=== PATIENT | female | born 1950 ===

== ENCOUNTER 2017-04-22 22:20 | Inpatient (IN) | payer MEDICARE, OTHER ==
[~2017-04-22] VITALS: Ht 149.9 cm; Wt 77.1 kg
--- NOTE | 2017-04-22 21:00 | NUR ---
Pt arrived in rehab unit at 2030 via gurney, transferred by [facility] from [facility]. AAO x3 but forgetful. Slow speech, but respond appropriately. Skin intact. No acute distress noted. No c/o pain or discomfort. Pertinent assessment done. Oriented pt to unit and equipment. Safety measures maintained. Call light and personal belongings within reach. Will continue to monitor.
[2017-04-22] MEDS ORDERED: Z GUARD REMEDY PASTE 57 GM TUBE TOP PRN (23:00)
[2017-04-22 23:29] VITALS: BP 144/99
--- NOTE | 2017-04-22 23:50 | NUR ---
Called [facility] for med recon. Per rivet tapping machine operator, Dr. Huerta said to call back for med recon at 0900 tomorrow. Will continue to monitor pt.
--- NOTE | 2017-04-23 06:01 | NUR ---
Pt slept comfortably at night. VSS. All needs attended to promptly. Assisted to the bathroom and changed diaper as needed. Pt has been compliant. Will endorse to day shift RN. Continue to monitor.
[2017-04-23 08:34] VITALS: BP 104/68
--- NOTE | 2017-04-23 09:02 | NUR ---
SBAR report received, board updated. Pt assessed, awake, alert, and oriented. Pt compliant with scheduled therapies for initial evaluations. [facility] doctor customer relationship specialist called, and left message regarding admission medication reconciliation. Pt only has Z guard listed at this time. Plan of care discussed. Will continue to monitor.
--- NOTE | 2017-04-23 11:08 | NUR ---
Called again attempting to reach Dr. Huerta as endorsed from shift mgr nurse regarding medication reconciliation from admission yesterday. Left message with receptionist nurse. Pt compliant with PT and OT as scheduled. Spoke with Pt's emergency contact Ofelia Mccullough regarding visiting and plan of care. Called for a third time and left message with receptionist nurse for studio operations engineer in charge VIP MD. Will continue to monitor Pt.
--- NOTE | 2017-04-23 11:30 | NUR ---
Spoke with VIP MD, Dr. Arguello over the phone regarding initial medication reconciliation, stating he would "take care of it" and complete med recon. All comfort measures met. Call light within reach. Will continue to monitor Pt.
--- NOTE | 2017-04-23 11:45 | NUR ---
Pt blood sugar 190. Pt reports feeling "fine and normal", denies dizziness. Call light within reach. Will continue to monitor.
[2017-04-23] MEDS ORDERED: GABA300C PO (12:20)
[2017-04-23] MEDS ORDERED: DONE5TAB7 PO (12:20)
[2017-04-23] MEDS ORDERED: ATOR40TA PO (12:20)
[2017-04-23] MEDS ORDERED: CLOP75TA15 PO (12:20)
[2017-04-23] MEDS ORDERED: AMLO5TAB4 PO (12:20)
[2017-04-23] MEDS ORDERED: CLON0.1T14 PO (12:20)
[2017-04-23] MEDS ORDERED: METF850T PO (12:20)
[2017-04-23] MEDS ORDERED: VALS320T2 PO (12:20)
[2017-04-23] MEDS ORDERED: HYDR25TA4 PO (12:20)
[2017-04-23] MEDS ORDERED: ASPI81TA31 PO (12:21)
--- NOTE | 2017-04-23 13:13 | NUR ---
Attempted to contact [facility] MDs, leaving message for retail center receptionist again. Medication reconciliation still unapproved by MD. Pharmacy contacted as well as Dr. See and Dr. Shaun De Los Santos regarding the matter. Will continue to monitor Pt. Call light within reach.
[2017-04-23] MEDS ORDERED: CLONIDINE HCL 0.1 MG TABLET PO PRN (13:45)
--- NOTE | 2017-04-23 14:00 | NUR ---
Pt seen by , Dr. Arguello, new orders received. Medication reconciliation done. Pt compliant with medication administration as ordered. Call light within reach. Will continue to monitor.
[2017-04-23] MEDS: ASPIRIN 81 MG TAB.CHEW PO SCH (14:07)
[2017-04-23] MEDS: ATORVASTATIN 40 MG TABLET PO SCH (14:07)
[2017-04-23] MEDS: AMLODIPINE 5 MG TABLET PO SCH ×2 (14:08→21:11)
[2017-04-23] MEDS: LOSARTAN POTASSIUM 50 MG TABLET PO SCH (14:09)
[2017-04-23] MEDS ORDERED: BLOOD SUGAR DIAGNOSTIC 1 EACH STRIP VI SCH (16:30)
[2017-04-23] MEDS: GABAPENTIN 300 MG CAPSULE PO SCH (17:05)
[2017-04-23] MEDS: METFORMIN HCL 850 MG TABLET PO SCH (17:05)
[2017-04-23] MEDS ORDERED: INSULIN REGULAR, HUMAN 300 UNIT/3 ML VIAL SQ SCH (17:45)
[2017-04-23] MEDS ORDERED: DEXTROSE 50% 50 ML DISP.SYRIN IV PRN (18:00)
--- NOTE | 2017-04-23 20:13 | NUR ---
Received pt asleep, lying on bed comfortably with no signs of distress noted. No complaints of pain or discomfort. No SOB noted. Vital signs stable. Kept clean, dry and comfortable. call light within reach. Side rails up. Bed alarm on. Bed locked and in lowest position. All needs attended.
[2017-04-23 20:28] VITALS: BP 136/79
[2017-04-23] MEDS: DONEPEZIL 5 MG TABLET PO SCH (21:11)
[2017-04-23] MEDS: BLOOD SUGAR DIAGNOSTIC 1 EACH STRIP VI SCH (21:15)
[2017-04-23] MEDS: [UNRECOGNIZED DRUG - REMARK] SQ PRN (21:16)
--- NOTE | 2017-04-24 06:14 | NUR ---
Pt slept comfortably throughout the night. No apparent distress noted. No complaints of pain or discomfort. Breathing even and unlabored with normal respirations. Assisted to the bathroom as needed. Kept clean, dry and comfortable. Call light within reach. All needs met.
[2017-04-24] MEDS: BLOOD SUGAR DIAGNOSTIC 1 EACH STRIP VI SCH ×4 (06:33→21:03)
[2017-04-24 07:36] LABS: BASOPHILS % (AUTO) 0.9 % (0.0-2.0); EOSINOPHILS # (AUTO) 0.2 K/uL (0.0-0.7); EOSINOPHILS % (AUTO) 4.4 % (0.0-7.0); HEMATOCRIT 38.5 % (31.2-41.9); HEMOGLOBIN 12.8 g/dL (10.9-14.3); LYMPHOCYTES # (AUTO) 1.5 K/uL (20.0-40.0); LYMPHOCYTES % (AUTO) 29.8 % (20.5-51.5); MEAN CORPUSCULAR HEMOGLOBIN 29.9 uug (24.7-32.8); MEAN CORPUSCULAR HGB CONC 33 g/dL (32.3-35.6); MEAN CORPUSCULAR VOLUME 89.7 fL (75.5-95.3); MONOCYTES # (AUTO) 0.5 K/uL (2.0-10.0); MONOCYTES % (AUTO) 10.6 % (0.0-11.0); NEUTROPHILS # (AUTO) 2.8 K/uL (1.8-8.9); NEUTROPHILS % (AUTO) 54.3 % (38.5-71.5); PLATELET COUNT (AUTO) 195 K/uL (179-408); WHITE BLOOD COUNT (AUTO) 5.1 K/uL (3.8-11.8)
[2017-04-24 08:04] LABS: BILIRUBIN,TOTAL 0.4 mg/dL (0.2-1.0); MAGNESIUM 1.4 mg/dL (1.8-2.4); PHOSPHOROUS 2.8 mg/dL (2.5-4.9); POTASSIUM 3.5 mmol/L (3.5-5.1); TOTAL PROTEIN, SERUM 7.5 g/dL (6.4-8.2)
[2017-04-24] MEDS: GABAPENTIN 300 MG CAPSULE PO SCH ×2 (08:28→16:55)
[2017-04-24] MEDS: ATORVASTATIN 40 MG TABLET PO SCH (08:28)
[2017-04-24] MEDS: CLOPIDOGREL 75 MG TABLET PO SCH (08:28)
[2017-04-24] MEDS: METFORMIN HCL 850 MG TABLET PO SCH ×2 (08:28→16:55)
[2017-04-24] MEDS: LOSARTAN POTASSIUM 50 MG TABLET PO SCH (08:28)
[2017-04-24] MEDS: ASPIRIN 81 MG TAB.CHEW PO SCH (08:28)
[2017-04-24] MEDS: [UNRECOGNIZED DRUG - REMARK] SQ PRN ×3 (08:29→16:54)
[2017-04-24] MEDS: HYDROCHLOROTHIAZIDE 25 MG TABLET PO SCH (08:29)
[2017-04-24 10:01] VITALS: BP 139/98
--- NOTE | 2017-04-24 11:02 | NUR ---
pt seen on rounding. pt continues to be baseline. nih scale done. stroke education given . pt needs reinforcement. pt is fall risk. bed alarm on and bed in low position. vitals stable. loc remained baseline. pt participated in therapy. PT states taht pt has problems with balance and coordination. pt blood sugar wnl no insulin given. pt ate all breakfast. will continue to monitor.
[2017-04-24] MEDS ORDERED: MAGNESIUM OXIDE 400 MG TABLET PO ONE (14:45)
[2017-04-24] MEDS ORDERED: BISACODYL 5 MG TABLET.DR PO ONE (16:15)
[2017-04-24] MEDS ORDERED: BISACODYL 5 MG TABLET.DR PO PRN (17:00)
--- NOTE | 2017-04-24 18:47 | NUR ---
pt stable throughout the day. no changes on nih scale. pt had a bm and voided. pt given insulin as needed. will endorse to night fit nurse.
--- NOTE | 2017-04-24 19:15 | NUR ---
Received patient laying in bed. Alert and verbally responsive. Able to make needs known. Denies any pain and discomfort at this time. No acute distress. No SOB. Kept clean and dry. All needs attended to promptly. Call light is within reach. Will continue to monitor.
[2017-04-24 19:30] VITALS: BP 124/95
[2017-04-24] MEDS: AMLODIPINE 5 MG TABLET PO SCH (21:02)
[2017-04-24] MEDS: DONEPEZIL 5 MG TABLET PO SCH (21:02)
[2017-04-25] MEDS: BLOOD SUGAR DIAGNOSTIC 1 EACH STRIP VI SCH ×4 (06:31→20:47)
--- NOTE | 2017-04-25 06:43 | NUR ---
Patient slept comfortably throughout the night. No cd/o pain and discomfort. No acute distress. No SOB. Kept clean and dry. BS this am is 108. No insulin coverage needed. All needs attended to promptly. Call light is within reach. Will continue to monitor.
[2017-04-25 07:30] VITALS: BP 126/86
[2017-04-25] MEDS: METFORMIN HCL 850 MG TABLET PO SCH ×2 (08:36→17:19)
[2017-04-25] MEDS: GABAPENTIN 300 MG CAPSULE PO SCH ×2 (08:37→17:19)
[2017-04-25] MEDS: ATORVASTATIN 40 MG TABLET PO SCH (08:37)
[2017-04-25] MEDS: CLOPIDOGREL 75 MG TABLET PO SCH (08:37)
[2017-04-25] MEDS: ASPIRIN 81 MG TAB.CHEW PO SCH (08:37)
[2017-04-25] MEDS: LOSARTAN POTASSIUM 50 MG TABLET PO SCH (08:38)
[2017-04-25] MEDS: HYDROCHLOROTHIAZIDE 25 MG TABLET PO SCH (08:38)
[2017-04-25] MEDS: [UNRECOGNIZED DRUG - REMARK] SQ PRN (12:04)
--- NOTE | 2017-04-25 18:16 | NUR ---
Patient was compliant with her plan of care all throughout the shift. She denies pain, set goals for therapy, PT/OT and was achieved per patient. Patients had no episode of hypoglycemia or hyperglycemia at this time, safety was provided and all her needs were attended promptly. Call light is in reach. Pertinent assessments done, not in acute distress.
--- NOTE | 2017-04-25 19:15 | NUR ---
Received patient laying in bed. Alert and verbally responsive. Able to make needs known. Denies any pain and discomfort at this time. No acute distress. No SOB. Kept clean and dry. All needs attended to promptly. Call light within reach. Will continue to monitor.
[2017-04-25 20:08] VITALS: BP 126/74
[2017-04-25] MEDS: DONEPEZIL 5 MG TABLET PO SCH (20:42)
[2017-04-25] MEDS: AMLODIPINE 5 MG TABLET PO SCH (20:42)
[2017-04-26] MEDS: BLOOD SUGAR DIAGNOSTIC 1 EACH STRIP VI SCH ×4 (06:38→20:34)
--- NOTE | 2017-04-26 06:51 | NUR ---
Patient slept comfortably throughout the night. No c/o pain and discomfort. No acute distress. No SOB. Kept clean and dry. All needs attended to promptly. Call light within reach. Will continue to monitor.
[2017-04-26 07:30] VITALS: BP 117/86
[2017-04-26] MEDS: ATORVASTATIN 40 MG TABLET PO SCH (08:34)
[2017-04-26] MEDS: METFORMIN HCL 850 MG TABLET PO SCH ×2 (08:34→17:00)
[2017-04-26] MEDS: GABAPENTIN 300 MG CAPSULE PO SCH ×2 (08:34→16:59)
[2017-04-26] MEDS: ASPIRIN 81 MG TAB.CHEW PO SCH (08:35)
[2017-04-26] MEDS: LOSARTAN POTASSIUM 50 MG TABLET PO SCH (08:35)
[2017-04-26] MEDS: CLOPIDOGREL 75 MG TABLET PO SCH (08:35)
[2017-04-26] MEDS: HYDROCHLOROTHIAZIDE 25 MG TABLET PO SCH (08:36)
--- NOTE | 2017-04-26 11:16 | NUR ---
SBAR report received, board updated. Pt assessed, awake, alert, and oriented x3-4. Pt easily able to make needs known, with extra time to respond. Pt compliant with all routinely scheduled medication administration. Plan of care for the day discussed and willingness to participate in therapies provided. All comfort and safety needs met. Will continue to monitor.
--- NOTE | 2017-04-26 13:58 | NUR ---
INTERDISCIPLINARY TEAM CONFERENCE
--- NOTE | 2017-04-26 18:30 | NUR ---
Pt assisted to bathroom, reminded to utilize call light for all toileting needs. Voiding x1 and BM x1. Pt clean, dry, and repositioned for comfort. Call light and personal belongings placed within reach. All safety and comfort measures met, will continue to monitor and endorse to oncoming shift supervisor rn.
--- NOTE | 2017-04-26 19:45 | NUR ---
Received pt lying on bed comfortably, awake and alert. No acute distress noted. Denies pain at this time. No SOB noted. Kept clean, dry and comfortable. Side rails up. Bed alarm on. Bed locked and in lowest position. Call light placed within reach. Encouraged to call for assistance if needed. All needs attended.
[2017-04-26 20:16] VITALS: BP 119/85
[2017-04-26] MEDS: DONEPEZIL 5 MG TABLET PO SCH (20:30)
[2017-04-26] MEDS: AMLODIPINE 5 MG TABLET PO SCH (20:30)
[2017-04-26] MEDS: [UNRECOGNIZED DRUG - REMARK] SQ PRN (20:37)
--- NOTE | 2017-04-27 05:40 | NUR ---
Pt slept well throughout the shift with no signs of distress noted. No complaints of pain or discomfort. Breathing even and unlabored with normal respirations. Assisted to the bathroom as needed. Frequently checked for safety. Call light placed within reach. All needs attended.
[2017-04-27] MEDS: BLOOD SUGAR DIAGNOSTIC 1 EACH STRIP VI SCH ×4 (06:27→20:36)
[2017-04-27 08:03] VITALS: BP 127/98
[2017-04-27] MEDS: GABAPENTIN 300 MG CAPSULE PO SCH ×2 (09:51→18:08)
[2017-04-27] MEDS: ATORVASTATIN 40 MG TABLET PO SCH (09:51)
[2017-04-27] MEDS: LOSARTAN POTASSIUM 50 MG TABLET PO SCH (09:51)
[2017-04-27] MEDS: CLOPIDOGREL 75 MG TABLET PO SCH (09:51)
[2017-04-27] MEDS: METFORMIN HCL 850 MG TABLET PO SCH ×2 (09:51→18:08)
[2017-04-27] MEDS: HYDROCHLOROTHIAZIDE 25 MG TABLET PO SCH (09:52)
[2017-04-27] MEDS: ASPIRIN 81 MG TAB.CHEW PO SCH (09:54)
[2017-04-27 19:30] VITALS: BP 151/83
--- NOTE | 2017-04-27 19:36 | NUR ---
Received pt on bed alert and awake with no apparent distress noted. No complaints of pain or discomfort. No signs/symptoms of hypo/hyperglycemia noted. kept clean, dry and comfortable. Bed alarm on. Bed locked and in lowest position. Call light placed within reach. All needs attended.
[2017-04-27] MEDS: DONEPEZIL 5 MG TABLET PO SCH (20:32)
[2017-04-27] MEDS: [UNRECOGNIZED DRUG - REMARK] SQ PRN (20:38)
[2017-04-27] MEDS: AMLODIPINE 5 MG TABLET PO SCH (20:39)
[2017-04-28] MEDS: BLOOD SUGAR DIAGNOSTIC 1 EACH STRIP VI SCH ×4 (06:20→20:43)
--- NOTE | 2017-04-28 06:32 | NUR ---
Pt slept comfortably throughout the night with no apparent distress noted. No complaints of pain or discomfort. Breathing even and unlabored with normal respirations. Assisted to the bathroom as needed. Safety and fall precautions observed and maintained. Call light placed within reach. All needs attended.
[2017-04-28 08:00] VITALS: BP 113/75
[2017-04-28] MEDS: METFORMIN HCL 850 MG TABLET PO SCH ×2 (09:05→17:34)
[2017-04-28] MEDS: ATORVASTATIN 40 MG TABLET PO SCH (09:05)
[2017-04-28] MEDS: CLOPIDOGREL 75 MG TABLET PO SCH (09:05)
[2017-04-28] MEDS: ASPIRIN 81 MG TAB.CHEW PO SCH (09:06)
[2017-04-28] MEDS: LOSARTAN POTASSIUM 50 MG TABLET PO SCH (09:06)
[2017-04-28] MEDS: GABAPENTIN 300 MG CAPSULE PO SCH ×2 (09:07→17:34)
[2017-04-28] MEDS: HYDROCHLOROTHIAZIDE 25 MG TABLET PO SCH (09:07)
--- NOTE | 2017-04-28 20:10 | NUR ---
Received pt up in bed, AAO x 2, verbally responsive and able to make needs known. No acute distress noted. Denies pain or discomfort at this time. All safety measures and fall precautions maintained. Call light and all personal belongings within reach. Will continue to monitor.
[2017-04-28] MEDS: DONEPEZIL 5 MG TABLET PO SCH (20:42)
[2017-04-28] MEDS: AMLODIPINE 5 MG TABLET PO SCH (20:43)
[2017-04-29] MEDS: BLOOD SUGAR DIAGNOSTIC 1 EACH STRIP VI SCH ×4 (06:53→20:57)
[2017-04-29] MEDS: ATORVASTATIN 40 MG TABLET PO SCH (08:22)
[2017-04-29] MEDS: ASPIRIN 81 MG TAB.CHEW PO SCH (08:22)
[2017-04-29] MEDS: CLOPIDOGREL 75 MG TABLET PO SCH (08:22)
[2017-04-29] MEDS: GABAPENTIN 300 MG CAPSULE PO SCH ×2 (08:22→16:39)
[2017-04-29] MEDS: METFORMIN HCL 850 MG TABLET PO SCH ×2 (08:22→17:00)
[2017-04-29] MEDS: LOSARTAN POTASSIUM 50 MG TABLET PO SCH (08:23)
[2017-04-29] MEDS: HYDROCHLOROTHIAZIDE 25 MG TABLET PO SCH (08:24)
--- NOTE | 2017-04-29 11:09 | NUR ---
SBAR report received, board updated. Pt assessed, awake, alert, oriented x2. VS WNL. No acute distress or c/o pain. Pt consumed 100% of breakfast, feeding self independently. Pt compliant with routine morning medication administration. BS 94, no coverage necessary. Plan for today discussed. Pt able to make needs known. Bed in lowest position, locked, with side rails up x2. Call light and personal belongings placed within reach. Will continue to monitor.
[2017-04-29] MEDS: [UNRECOGNIZED DRUG - REMARK] SQ PRN (12:21)
--- NOTE | 2017-04-29 17:53 | NUR ---
Pt assisted to bathroom, voiding x1. Pt clean, dry, and assisted back into bed. Pt compliant with routine scheduled medications, BS 107 requiring no insulin coverage. Pt consumed 100% of dinner. All safety and comfort measures met. Call light within reach. Will continue to monitor and endorse oncoming shift mgr.
--- NOTE | 2017-04-29 19:26 | NUR ---
Received pt in bed, watching television AAO x 3 with no acute distress noted. Verbally responsive and able to make needs known. Verbalizing feeling "tired, but I'm getting stronger." Denies pain or discomfort at this time. All safety measures and fall precautions maintained. Call light and all personal belongings within reach. Will continue to monitor.
[2017-04-29] MEDS: AMLODIPINE 5 MG TABLET PO SCH (20:56)
[2017-04-29] MEDS: DONEPEZIL 5 MG TABLET PO SCH (20:56)
[2017-04-29 21:17] VITALS: BP 126/92
[2017-04-30] MEDS: BLOOD SUGAR DIAGNOSTIC 1 EACH STRIP VI SCH ×4 (06:42→21:19)
[2017-04-30] MEDS: CLOPIDOGREL 75 MG TABLET PO SCH (08:10)
[2017-04-30] MEDS: HYDROCHLOROTHIAZIDE 25 MG TABLET PO SCH (08:10)
[2017-04-30] MEDS: GABAPENTIN 300 MG CAPSULE PO SCH ×2 (08:10→17:01)
[2017-04-30] MEDS: METFORMIN HCL 850 MG TABLET PO SCH ×2 (08:10→17:01)
[2017-04-30] MEDS: LOSARTAN POTASSIUM 50 MG TABLET PO SCH (08:11)
[2017-04-30] MEDS: ASPIRIN 81 MG TAB.CHEW PO SCH (08:11)
[2017-04-30] MEDS: ATORVASTATIN 40 MG TABLET PO SCH (08:11)
--- NOTE | 2017-04-30 09:31 | NUR ---
SBAR report received, board updated. Pt assessed, denies pain or discomfort at this time. VS WNL. Pt reports having slept well. Plan of care for the day discussed. Pt agrees to comply with all regularly scheduled therapies. Pt compliant with all morning medications. BS 98 requiring no insulin coverage. Pt assisted to sit up for self feeding and consumed 100% of breakfast. Call light within reach will continue to monitor.
[2017-04-30] MEDS: [UNRECOGNIZED DRUG - REMARK] SQ PRN (12:07)
--- NOTE | 2017-04-30 18:29 | NUR ---
Pt assisted to bathroom, BMx1 and voiding x1. Pt clean and dry. Bed alarm on. VS WNL. All needs attended to at this time. Call light within reach and Pt teaching used to remind Pt to use when in need of assistance. Will continue to monitor and endorse to oncoming material handler 2nd shift.
[2017-04-30 20:00] VITALS: BP 127/88
--- NOTE | 2017-04-30 20:00 | NUR ---
Received pt on bed awake, alert and oriented. Able to make needs known. No acute distress noted. No complaints of pain or discomfort. No SOB noted. All due meds given as ordered and well tolerated. Vital signs stable. Kept clean, dry and comfortable. Call light placed within reach. Side rails up x2. Bed alarm on. Bed locked and in lowest position. All needs attended.
--- NOTE | 2017-04-30 21:00 | NUR ---
Patient took off the splint on her right 4th and 5th finger, states that it is very uncomfortable for her. Explained risks and benefits but still pt refused to put it back on. No complaints of pain. No SOB noted. Will continue to monitor.
[2017-04-30] MEDS: DONEPEZIL 5 MG TABLET PO SCH (21:13)
[2017-04-30] MEDS: AMLODIPINE 5 MG TABLET PO SCH (21:14)
[2017-05-01] MEDS: BLOOD SUGAR DIAGNOSTIC 1 EACH STRIP VI SCH ×4 (06:41→20:15)
[2017-05-01 08:13] VITALS: BP 124/92
[2017-05-01] MEDS: METFORMIN HCL 850 MG TABLET PO SCH ×2 (08:47→17:00)
[2017-05-01] MEDS: ATORVASTATIN 40 MG TABLET PO SCH (08:47)
[2017-05-01] MEDS: LOSARTAN POTASSIUM 50 MG TABLET PO SCH (08:47)
[2017-05-01] MEDS: CLOPIDOGREL 75 MG TABLET PO SCH (08:47)
[2017-05-01] MEDS: GABAPENTIN 300 MG CAPSULE PO SCH ×2 (08:47→17:00)
[2017-05-01] MEDS: HYDROCHLOROTHIAZIDE 25 MG TABLET PO SCH (08:48)
[2017-05-01] MEDS: ASPIRIN 81 MG TAB.CHEW PO SCH (08:48)
[2017-05-01] MEDS: [UNRECOGNIZED DRUG - REMARK] SQ PRN ×4 (08:48→20:18)
--- NOTE | 2017-05-01 09:04 | NUR ---
pt seen on rounding. vitals stable. no new injuries. pt participated in adl such as eating. deficits from stroke seen but improving on gross movements on hands. pt took meds whole no aspiration noted. pt took off splint on fingers stating that it was uncomfortable but willing to put it on later. no insulin given am. will continue to monitor.
[2017-05-01 09:31] LABS: BASOPHILS % (AUTO) 0.6 % (0.0-2.0); EOSINOPHILS # (AUTO) 0.2 K/uL (0.0-0.7); EOSINOPHILS % (AUTO) 3.7 % (0.0-7.0); LYMPHOCYTES # (AUTO) 1.5 K/uL (20.0-40.0); LYMPHOCYTES % (AUTO) 26.1 % (20.5-51.5); MEAN CORPUSCULAR HEMOGLOBIN 29.9 uug (24.7-32.8); MEAN CORPUSCULAR HGB CONC 33 g/dL (32.3-35.6); MEAN CORPUSCULAR VOLUME 89.5 fL (75.5-95.3); MONOCYTES # (AUTO) 0.3 K/uL (2.0-10.0); MONOCYTES % (AUTO) 4.7 % (0.0-11.0); NEUTROPHILS # (AUTO) 3.6 K/uL (1.8-8.9); NEUTROPHILS % (AUTO) 64.9 % (38.5-71.5); PLATELET COUNT (AUTO) 229 K/uL (179-408); RED BLOOD CELL COUNT(AUTO) 4.69 MIL/uL (3.63-4.92); WHITE BLOOD COUNT (AUTO) 5.6 K/uL (3.8-11.8)
[2017-05-01 10:22] LABS: THYROID STIMULATING HORMONE 1.712 mIU/mL (0.358-3.740)
[2017-05-01 10:32] LABS: BILIRUBIN,TOTAL 0.4 mg/dL (0.2-1.0); CREATININE 1.1 mg/dL (0.6-1.3); MAGNESIUM 1.4 mg/dL (1.8-2.4); PHOSPHOROUS 2.9 mg/dL (2.5-4.9); POTASSIUM 3.5 mmol/L (3.5-5.1); TOTAL PROTEIN, SERUM 8.1 g/dL (6.4-8.2)
--- NOTE | 2017-05-01 19:00 | NUR ---
Received patient laying in bed. Alert and verbally responsive. Able to make needs known. Denies any pain and discomfort at this time. No acute distress. No SOB. Kept clean and dry. Bed alarm on. Bed in low position. All needs attended to promptly. Call light within reach. Will continue to monitor.
--- NOTE | 2017-05-01 19:02 | NUR ---
pt stable throughout the day. pt participated on therapy. no new injuries. [facility] remained baseline will endorse to welder 2nd shift nurse.
[2017-05-01 20:00] VITALS: BP 132/90
[2017-05-01] MEDS: DONEPEZIL 5 MG TABLET PO SCH (20:15)
[2017-05-01] MEDS: AMLODIPINE 5 MG TABLET PO SCH (20:16)
[2017-05-02] MEDS: BLOOD SUGAR DIAGNOSTIC 1 EACH STRIP VI SCH ×4 (06:42→20:48)
--- NOTE | 2017-05-02 07:00 | NUR ---
Patient slept comfortably throughout the night. No c/o pain and discomfort. No acute distress. No SOB. Diaper changed. Kept clean and dry. Blood sugar this AM is 98. No insulin needed. Bed alarm on. Bed in low position. All needs attended to promptly. Call light within reach. Will continue to monitor.
[2017-05-02 08:00] VITALS: BP 119/89
--- NOTE | 2017-05-02 08:25 | NUR ---
patient noted resting in bed watching tv, no complaints of pain at this time, call light in reach, bed locked and in lowest position, x 2 bed rails, all needs met at this time.
[2017-05-02] MEDS: METFORMIN HCL 850 MG TABLET PO SCH ×2 (08:34→17:13)
[2017-05-02] MEDS: GABAPENTIN 300 MG CAPSULE PO SCH ×2 (08:34→17:13)
[2017-05-02] MEDS: ATORVASTATIN 40 MG TABLET PO SCH (08:34)
[2017-05-02] MEDS: ASPIRIN 81 MG TAB.CHEW PO SCH (08:34)
[2017-05-02] MEDS: CLOPIDOGREL 75 MG TABLET PO SCH (08:34)
[2017-05-02] MEDS: HYDROCHLOROTHIAZIDE 25 MG TABLET PO SCH (08:35)
[2017-05-02] MEDS: LOSARTAN POTASSIUM 50 MG TABLET PO SCH (08:35)
--- NOTE | 2017-05-02 20:04 | NUR ---
admitted for CVA with left side weakness. Resting in b`ed upon rounds. aaox3-4 no acute distress noted. needs attended. continent of bowel and bladder. fall precautions maintained. siderails up for safety. left hand swollen +2 pitting edema noted. will monitor patient. kept comfortable. vital signs stable.
[2017-05-02 20:16] VITALS: BP 115/88
[2017-05-02] MEDS: AMLODIPINE 5 MG TABLET PO SCH (20:49)
[2017-05-02] MEDS: DONEPEZIL 5 MG TABLET PO SCH (20:49)
[2017-05-03] MEDS: BLOOD SUGAR DIAGNOSTIC 1 EACH STRIP VI SCH ×4 (06:30→21:04)
[2017-05-03 08:14] VITALS: BP 128/93
[2017-05-03] MEDS: METFORMIN HCL 850 MG TABLET PO SCH ×2 (08:20→16:48)
[2017-05-03] MEDS: ATORVASTATIN 40 MG TABLET PO SCH (08:20)
[2017-05-03] MEDS: CLOPIDOGREL 75 MG TABLET PO SCH (08:20)
[2017-05-03] MEDS: GABAPENTIN 300 MG CAPSULE PO SCH ×2 (08:20→16:48)
[2017-05-03] MEDS: LOSARTAN POTASSIUM 50 MG TABLET PO SCH (08:20)
[2017-05-03] MEDS: ASPIRIN 81 MG TAB.CHEW PO SCH (08:20)
[2017-05-03] MEDS: HYDROCHLOROTHIAZIDE 25 MG TABLET PO SCH (08:21)
--- NOTE | 2017-05-03 11:20 | NUR ---
Patient noted resting in bed with eyes closed, no facial cues of pain, no signs of distress noted, call light in reach, bed locked and in lowest position, x 2 bed rails, bed alarm in place, all needs met at this time
[2017-05-03] MEDS: [UNRECOGNIZED DRUG - REMARK] SQ PRN (12:04)
--- NOTE | 2017-05-03 13:17 | NUR ---
INTERDISCIPLINARY TEAM CONFERENCE
[2017-05-03 19:30] VITALS: BP 139/96
--- NOTE | 2017-05-03 20:30 | NUR ---
Received pt on bed alert, awake and oriented x3. Able to make needs known. Family at bedside. No acute distress noted. Breathing even and unlabored with normal respirations. Assisted to the bathroom as needed. No signs/symptoms of hypo/hyperglycemia noted. Kept clean, dry and comfortable. Safety and fall precautions observed and maintained. Call light within reach. All needs attended
[2017-05-03] MEDS: DONEPEZIL 5 MG TABLET PO SCH (21:00)
[2017-05-03] MEDS: AMLODIPINE 5 MG TABLET PO SCH (21:17)
--- NOTE | 2017-05-04 05:47 | NUR ---
Patient slept well throughout the shift with no signs of distress noted. Denies pain. No SOB noted. Assisted to the bathroom as needed. Safety and fall precautions observed. Call light within reach. All needs attended
[2017-05-04] MEDS: BLOOD SUGAR DIAGNOSTIC 1 EACH STRIP VI SCH ×4 (06:40→20:22)
[2017-05-04 07:00] VITALS: BP 112/81
--- NOTE | 2017-05-04 07:56 | NUR ---
patient noted resting in bed, denies pain at this time, no signs of distress, call light in reach, bed locked and in lowest position, x 2 bed rails, bed alarm in place
[2017-05-04] MEDS: ASPIRIN 81 MG TAB.CHEW PO SCH (08:38)
[2017-05-04] MEDS: GABAPENTIN 300 MG CAPSULE PO SCH ×2 (08:38→17:48)
[2017-05-04] MEDS: LOSARTAN POTASSIUM 50 MG TABLET PO SCH (08:38)
[2017-05-04] MEDS: ATORVASTATIN 40 MG TABLET PO SCH (08:38)
[2017-05-04] MEDS: METFORMIN HCL 850 MG TABLET PO SCH ×2 (08:38→17:48)
[2017-05-04] MEDS: CLOPIDOGREL 75 MG TABLET PO SCH (08:38)
[2017-05-04] MEDS: HYDROCHLOROTHIAZIDE 25 MG TABLET PO SCH (08:39)
--- NOTE | 2017-05-04 18:58 | NUR ---
Patient took hospital leave for MRI appointment via family and private car from [id number]
[2017-05-04 19:44] VITALS: BP 136/92
--- NOTE | 2017-05-04 19:55 | NUR ---
Received pt lying on bed comfortably, awake, alert and oriented x3. Able to make needs known. Pleasant, calm and cooperative to care. No acute distress noted. No complaints of pain or discomfort. No SOB noted. Vital signs stable. Kept clean, dry and comfortable. Call light within reach. All needs attended.
[2017-05-04] MEDS: DONEPEZIL 5 MG TABLET PO SCH (20:19)
[2017-05-04] MEDS: AMLODIPINE 5 MG TABLET PO SCH (20:19)
[2017-05-04] MEDS: [UNRECOGNIZED DRUG - REMARK] SQ PRN (20:23)
--- NOTE | 2017-05-05 05:35 | NUR ---
Patient slept well throughout the shift. No acute distress noted. No complaints of pain or discomfort. No SOB noted. No signs/symptoms of hypo/hyperglycemia noted. Assisted to the bathroom as needed. Frequently checked for safety. Kept clean, dry and comfortable. Call light within reach. All needs attended
[2017-05-05] MEDS: BLOOD SUGAR DIAGNOSTIC 1 EACH STRIP VI SCH ×4 (06:31→20:19)
--- NOTE | 2017-05-05 07:23 | NUR ---
I AGREE Addendum: 05/05/17 at 0724 by LULU METZ OT Amended: Links added.
--- NOTE | 2017-05-05 07:24 | NUR ---
I AGREE Addendum: 05/05/17 at 7225 by LULU METZ OT Amended: Links added.
--- NOTE | 2017-05-05 07:25 | NUR ---
I AGREE Addendum: 05/05/17 at 5525 by LULU METZ OT Amended: Links added.
--- NOTE | 2017-05-05 07:25 | NUR ---
I AGREE Addendum: 05/05/17 at 7625 by LULU METZ OT Amended: Links added.
[2017-05-05 07:46] VITALS: BP 139/92
--- NOTE | 2017-05-05 08:06 | NUR ---
Received patient asleep, easily arousable, not in any form of acute distress. No noted signs of pain or discomfort. Call light placed within reach.
[2017-05-05] MEDS: METFORMIN HCL 850 MG TABLET PO SCH ×2 (08:50→18:12)
[2017-05-05] MEDS: ASPIRIN 81 MG TAB.CHEW PO SCH (08:51)
[2017-05-05] MEDS: CLOPIDOGREL 75 MG TABLET PO SCH (08:51)
[2017-05-05] MEDS: HYDROCHLOROTHIAZIDE 25 MG TABLET PO SCH (08:52)
[2017-05-05] MEDS: GABAPENTIN 300 MG CAPSULE PO SCH ×2 (08:52→18:12)
[2017-05-05] MEDS: LOSARTAN POTASSIUM 50 MG TABLET PO SCH (08:52)
[2017-05-05] MEDS: ATORVASTATIN 40 MG TABLET PO SCH (08:52)
--- NOTE | 2017-05-05 10:42 | NUR ---
Patient up ambulating with physical therapist, no complain of any discomfort at this time.
[2017-05-05 19:30] VITALS: BP 130/89
--- NOTE | 2017-05-05 19:35 | NUR ---
Pt resting in bed. AAO x3 but forgetful. No acute distress noted. No c/o pain or discomfort. Safety measures maintained. Bed alarm on. Call light and personal belongings within reach. Will continue to monitor.
[2017-05-05] MEDS: AMLODIPINE 5 MG TABLET PO SCH (20:18)
[2017-05-05] MEDS: DONEPEZIL 5 MG TABLET PO SCH (20:18)
[2017-05-05] MEDS: [UNRECOGNIZED DRUG - REMARK] SQ PRN (20:23)
--- NOTE | 2017-05-06 05:49 | NUR ---
Pt slept intermittently at night. Meds and insulin coverage given per MD's order. Assisted to the bathroom as needed. All needs attended to promptly. Will endorse to day shift RN. Continue to monitor.
[2017-05-06] MEDS: BLOOD SUGAR DIAGNOSTIC 1 EACH STRIP VI SCH ×4 (06:39→20:27)
[2017-05-06 08:00] VITALS: BP 125/81
[2017-05-06] MEDS: CLOPIDOGREL 75 MG TABLET PO SCH (08:58)
[2017-05-06] MEDS: GABAPENTIN 300 MG CAPSULE PO SCH ×2 (08:58→17:23)
[2017-05-06] MEDS: ATORVASTATIN 40 MG TABLET PO SCH (08:58)
[2017-05-06] MEDS: ASPIRIN 81 MG TAB.CHEW PO SCH (08:58)
[2017-05-06] MEDS: HYDROCHLOROTHIAZIDE 25 MG TABLET PO SCH (08:59)
[2017-05-06] MEDS: METFORMIN HCL 850 MG TABLET PO SCH ×2 (09:02→17:23)
[2017-05-06] MEDS: LOSARTAN POTASSIUM 50 MG TABLET PO SCH (09:02)
--- NOTE | 2017-05-06 19:52 | NUR ---
Pt resting comfortably in bed. AAO x3 but forgetful. To be discharge tomorrow. Med recon done by Dr. Tubbs and in chart. No acute distress noted. No c/o pain or discomfort. Safety measures maintained. Call light and personal belongings within reach. Will continue to monitor.
[2017-05-06] MEDS: DONEPEZIL 5 MG TABLET PO SCH (20:27)
[2017-05-06] MEDS: AMLODIPINE 5 MG TABLET PO SCH (20:27)
[2017-05-06 20:30] VITALS: BP 163/110
[2017-05-06 21:38] VITALS: BP 177/110
[2017-05-06 22:13] VITALS: BP 154/104
[2017-05-06 22:40] VITALS: BP 135/89
--- NOTE | 2017-05-06 23:00 | NUR ---
2024: BP 163/110, scheduled Norvasc 5 mg given. 2026: BP 163/110. All other vital signs WNL. Pt asymptomatic. No c/o SOB. Scheduled Norvasc 5 mg given. 2114: BP 177/ 110. PRN Catapres 0.1 mg given. 2212: BP 154/104. 2239: BP 135/ 89. Will continue to monitor.
--- NOTE | 2017-05-07 05:43 | NUR ---
Pt slept comfortably at night. Meds given per MD's order. Pt compliant. All needs attended to promptly. Assisted to the bathroom and changed diaper as needed. Will endorse to day shift RN. Continue to monitor.
[2017-05-07] MEDS: BLOOD SUGAR DIAGNOSTIC 1 EACH STRIP VI SCH ×2 (06:43→11:30)
[2017-05-07 07:03] VITALS: BP 120/79
[2017-05-07] MEDS: ASPIRIN 81 MG TAB.CHEW PO SCH (08:42)
[2017-05-07] MEDS: METFORMIN HCL 850 MG TABLET PO SCH (08:42)
[2017-05-07] MEDS: GABAPENTIN 300 MG CAPSULE PO SCH (08:42)
[2017-05-07] MEDS: CLOPIDOGREL 75 MG TABLET PO SCH (08:42)
[2017-05-07] MEDS: ATORVASTATIN 40 MG TABLET PO SCH (08:42)
[2017-05-07 08:43] VITALS: BP 120/79
[2017-05-07] MEDS: HYDROCHLOROTHIAZIDE 25 MG TABLET PO SCH (08:43)
[2017-05-07] MEDS: LOSARTAN POTASSIUM 50 MG TABLET PO SCH (08:43)
--- NOTE | 2017-05-07 09:26 | NUR ---
Patient noted sitting up in bed watching TV, denies pain at this time, no signs of distress noted, call light in reach, bed locked and in lowest position, x [address], bed alarm in place
--- NOTE | 2017-05-07 15:22 | NUR ---
[place]: Biopsychosocial Assessment SW met with patient at bedside to assess her needs and provide support. Patient is a 66-year-old female who states she was admitted to ARU after a stroke. She was admitted to ARU due to functional impairment and gait dysfunction. Mental Status: Patient appeared alert and oriented x4 during interview. She presented in a motivated mood, stating that it has been "a surprise here at the hospital", that physical therapy is going well, and she is happy to be going home. Support System: Patient lives at home with her two adult sons. Patient reports that they help take care of her and are supportive. They are also helping set up caregiving for her. Goals: Patient states that she is ready to go home. Interventions: SW engaged in active listening. SW provided emotional support and counseling. SW encouraged patient to comply with rehab goals.
--- NOTE | 2017-05-07 15:34 | NUR ---
Patient left facility at 1500 via ambulance and gurney, left in stable condition, no complaints of pain, no signs of distress, exit care provided, discharge instructions given, all belongings accounted for, 105/77, 89 pulse, 18 resp, 98.3 oral temperature
== END 2017-05-07 14:10 | disposition home health service (06) | DRG 57 ==
PROVIDERS: ADMIT Physical Medicine & Rehabilitation Pain Medicine; ATTEND Physical Medicine & Rehabilitation Pain Medicine
DX: I69.354 Hemiplegia and hemiparesis following cerebral infarction affecting left non-dominant side (principal); F03.90 Unspecified dementia, unspecified severity, without behavioral disturbance, psychotic disturbance, mood disturbance, and anxiety; I69.398 Other sequelae of cerebral infarction; D49.2 Neoplasm of unspecified behavior of bone, soft tissue, and skin; E04.2 Nontoxic multinodular goiter; E11.9 Type 2 diabetes mellitus without complications; I10 Essential (primary) hypertension; I89.0 Lymphedema, not elsewhere classified; R26.9 Unspecified abnormalities of gait and mobility; Z90.12 Acquired absence of left breast and nipple; Z85.3 Personal history of malignant neoplasm of breast
CPT/HCPCS: 36415; 70030-TC; 82306; 83735; 84100; 84443; 85025; 92523; 97110; 97112; 97116; 97530; 97535; A4663; J1815